=== PATIENT | female | born 1995 | race Caucasian/White ===

== ENCOUNTER 2018-04-05 17:18 | Emergency (ER) | payer OTHER ==
[2018-04-05 17:27] VITALS: BP 148/80; PULSE 96; TEMP 98.6; BMI 28.1
--- NOTE | 2018-04-05 17:28 | PDOC ---
Rapid Medical Evaluation Chief Complaint: Pain Time Seen by Provider: 04/05/18 17:24 Medical Evaluation: Allergies Allergy/AdvReac Type Severity Reaction Status Date / Time No Known Allergies Allergy Verified 04/05/18 17:20 04/05/18 17:25 Pt c/o: intermittent sharp pain to left side of body x 2-3 months, intermittent headache frontal pressure x 1 month ago. No other complaints, no rash Pt on brief exam: VSS, no rash, no weakness, no spinal/cervical tenderness Pt ordered for : none Pt to proceed to the ED Discharge Disposition - Diagnosis Pain - Referrals - Patient Instructions - Post Discharge Activity
--- NOTE | 2018-04-05 18:02 | PDOC ---
History of Present Illness - General Chief Complaint: Pain Stated Complaint: PAIN Time Seen by Provider: 04/05/18 17:24 History Source: Patient Exam Limitations: No Limitations - History of Present Illness Initial Comments: 04/05/18 18:26 Vision is here with intermittent left shoulder, neck and arm pain on and off for some months. Has seen her private physician multiple times, has had ultrasounds that were negative results. Has no history of cardiac disease, no shortness of breath, has no fever, ear throat pain although states has some in a long jaw up to occiput. Taken no medications for relief of same. Timing/Duration: unsure, 24 hours Severity: mild, moderate Modifying Factors: improves with: medication Associated Symptoms: reports: denies symptoms Past History - Travel Traveled outside of the country in the last 30 days: No Close contact w/someone who was outside of country & ill: No - Past Medical History Allergies/Adverse Reactions: Allergies Allergy/AdvReac Type Severity Reaction Status Date / Time No Known Allergies Allergy Verified 04/05/18 17:20 Home Medications: Ambulatory Orders Cyclobenzaprine HCl 10 mg PO Q8H PRN #14 tablet 04/05/18 Naproxen [Naprosyn -] 500 mg PO TID #30 tablet 04/05/18 Anemia: Yes COPD: No - Immunization History Immunization Up to Date: Yes - Suicide/Smoking/Psychosocial Hx Smoking History: Never smoked Review of Systems - Review of Systems Able to Perform ROS?: Yes Is the patient limited Yoruba proficient: Yes Constitutional: Yes: Symptoms Reported, See HPI, Loss of Appetite. No: Fever, Malaise HEENTM: Yes: See HPI. No: Symptoms Reported Respiratory: Yes: See HPI. No: Symptoms reported, Cough Musculoskeletal: Yes: Symptoms Reported, See HPI, Muscle Pain, Neck Pain Neurological: Yes: Symptoms reported, See HPI, Headache All Other Systems: Reviewed and Negative *Physical Exam - Vital Signs Last Vital Signs Temp Pulse Resp BP Pulse Ox 98.6 F 96 H 18 148/80 98 04/05/18 17:21 04/05/18 17:21 04/05/18 17:21 04/05/18 17:21 04/05/18 17:21 - Physical Exam General Appearance: Yes: Nourished, Appropriately Dressed, Apparent Distress, Mild Distress HEENT: positive: JOSH, Normal ENT Inspection, Normal Voice, TMs Normal, Pharynx Normal Neck: positive: Tender, Supple, Other (palpable cording and spasm to the left sternocleidomastoid with reproduced headache pain,, neck pain and shoulder pain with deep palpation at the insertion sites. Range of motion is limited secondary to the spasm and cording. Right neck has also tenderness but not nearly as severe as left side.). negative: Tender midline Respiratory/Chest: positive: Lungs Clear, Normal Breath Sounds. negative: Chest Tender Cardiovascular: positive: Regular Rate Musculoskeletal: positive: Normal Inspection, Muscle Spasm. negative: Vertebral Tenderness Extremity: negative: Normal Range of Motion Integumentary: positive: Normal Color, Warm. negative: Rash, Bruising Neurologic: positive: tax accountant II-XII NML intact, Fully Oriented, Alert, Normal Mood/ Affect, Normal Response, Motor Strength 12/31 Medical Decision Making - Medical Decision Making 04/05/18 18:31 Intermittent cervical strain, will treat with NSAIDs and cyclobenzaprine *DC/Admit/Observation/Transfer Diagnosis at time of Disposition: Pain Cervical myofascial strain Qualifiers: Encounter type: initial encounter Qualified Code(s): S16.1XXA - Strain of muscle, fascia and tendon at neck level, initial encounter - Discharge Dispostion Disposition: HOME Condition at time of disposition: Stable Decision to Admit order: No - Referrals Referrals: Deirdre Teixeira MD [Primary Care Provider] - - Patient Instructions Printed Discharge Instructions: DI for Cervical Muscle Strain Additional Instructions: Rest, no heavy lifting or exercise until pain is resolved Hot soaks to neck and low back as often as possible/hot showers or Jacuzzis No massage or therapy until spasm is gone Continue Naprosyn 500 mg tablet, 1 tablet every 8 hours for the next 3 days then as needed for pain and swelling Cyclobenzaprine 1-10mg every 8 hours as needed for spasm If not significant improvement within 24 hours with medication and rest regime, followup with private physician for change in medications and /or therapy. - Post Discharge Activity Forms/Work/School Notes: Back to Work
== END 2018-04-05 18:39 | disposition home or self-care (01) ==
LOC: JERFT 17:18
DX: S16.1XXA Strain of muscle, fascia and tendon at neck level, initial encounter (principal); X58.XXXA Exposure to other specified factors, initial encounter; Y93.89 Activity, other specified; Y92.9 Unspecified place or not applicable
CPT/HCPCS: 99281-25